=== PATIENT | female | born 1935 | race Caucasian/White ===

== ENCOUNTER 2016-11-05 03:46 | Emergency (ER) | payer MEDICARE, OTHER ==
[~2016-11-05] VITALS: Ht 167.6 cm; Wt 68.1 kg
[2016-11-05 03:50] VITALS: BP 156/90; PULSE 99; RESP 15; TEMP 97; O2SAT 95
[2016-11-05] MEDS ORDERED: LORA-373 PO (04:24)
[2016-11-05] MEDS ORDERED: CYMB60CA PO (04:24)
[2016-11-05] MEDS ORDERED: ROSU1TAB6 PO (04:24)
[2016-11-05] MEDS ORDERED: LOSA50TA PO (04:24)
[2016-11-05] MEDS ORDERED: DICY10CA12 PO (04:24)
[2016-11-05] MEDS ORDERED: TRAM50TA PO (04:24)
[2016-11-05] MEDS ORDERED: DEXI60CA2 (04:24)
[2016-11-05] MEDS ORDERED: METF1000 PO (04:24)
[2016-11-05] MEDS ORDERED: K-TA10TA PO (04:24)
[2016-11-05] MEDS ORDERED: FURO1TAB62 PO (04:24)
[2016-11-05] MEDS ORDERED: PANCREALIPASE PO (04:24)
[2016-11-05] MEDS ORDERED: MONT10TA4 PO (04:24)
[2016-11-05] MEDS ORDERED: SERO50TA PO (04:24)
--- NOTE | 2016-11-05 05:46 | PD ---
HPI Chief Complaint: Fall Time Seen by Provider: 05:34 Travel History International Travel<30 days: No Contact w/Intl Traveler<30days: No Traveled to known affect area: No History of Present Illness HPI The patient is a 81-year-old female that lost balance and fell at approximately 3 AM today. Her left occipital area hit a tile floor created a stellate laceration. There was no nausea or vomiting and no loss of consciousness. There was no syncopal spell before the fall. The patient has a frozen hip and this makes it difficult for her to walk and is the reason the family thinks she falls frequently. PFSH Past Medical History Hx Anticoagulant Therapy: No Atrial Fibrillation: No Anxiety: Yes Depression: Yes Cardiovascular Problems: Yes (CABG) High Cholesterol: Yes Congestive Heart Failure: Yes COPD: Yes Coronary Artery Disease: Yes Dementia: Yes Diabetes: Yes Patient Takes Glucophage: No Endocrine: Yes (PANCREATIC ISSUES) GERD: Yes Insomnia: Yes Musculoskeletal: Yes (CHRONIC PAIN) Respiratory: Yes (COPD, ASTHMA) Pancreatitis: Yes Tetanus Vaccination: < 5 Years Influenza Vaccination: Yes ?: Not Past Surgical History Coronary Artery Bypass Graft: Yes Endocrine Surgery: Yes (PANCREATIC STENTS) Eye Surgery: Yes (CTATRACT WITH LENS REPLACEMENT) Hysterectomy: Yes Joint Replacement: Yes (LEWFT HIP) Social History Alcohol Use: Yes Tobacco Use: Yes Substance Use: No Allergies-Medications (Allergen,Severity, Reaction): Coded Allergies: meperidine (Verified Allergy, Intermediate, Hallucinations, 11/05/16) Sulfa (Sulfonamide Antibiotics) (Verified Allergy, Mild, Nausea/Vomiting, 11/05/16) latex (Verified Allergy, Mild, Rash, 11/05/16) phenobarbital (Verified Allergy, Mild, Nausea/Vomiting, 11/05/16) Reported Meds & Prescriptions Reported Meds & Active Scripts Active Reported Tramadol (Tramadol HCl) 50 Mg Tab 100 Mg PO Q6H PRN Dexilant (Dexlansoprazole) 60 Mg Jacob.bp DAILY Lasix (Furosemide) 20 Mg Tab 20 Mg PO DAILY Montelukast (Montelukast Sodium) 10 Mg Tab 10 Mg PO HS Rosuvastatin (Rosuvastatin Calcium) 10 Mg Tab 10 Mg PO DAILY K-Tab (Potassium Chloride) 10 Meq Tab 10 Meq PO DAILY Losartan (Losartan Potassium) 50 Mg Tab 50 Mg PO DAILY [Pancrealipase] 2 Cap PO PCHS Metformin (Metformin HCl) 1,000 Mg Tab 1,000 Mg PO BIDPC With meals Dicyclomine (Dicyclomine HCl) 10 Mg Cap 10 Mg PO TID Lorazepam 0.5 Mg Tab 0.5 Mg PO Q8H PRN Cymbalta DR (Duloxetine HCl) 60 Mg Capdr 60 Mg PO DAILY Seroquel (Quetiapine Fumarate) 50 Mg Tab 50 Mg PO HS Review of Systems Except as stated in HPI: all other systems reviewed are Neg Physical Exam Narrative GENERAL: The patient is alert and oriented to situation in slight apparent distress with her scalp laceration. SKIN: Focused skin assessment warm/dry. There is a stellate laceration about 3 cm in diameter. This could not be closed with mel. HEAD: Neither raccoon eyes or urbina sign is present.. Normocephalic. EYES: Pupils equal and round and react to light briskly. No scleral icterus. No injection or drainage. ENT: No nasal bleeding or discharge. Mucous membranes pink and moist. Both tympanic membranes are poorly seen due to wax in the ear canals. NECK: Trachea midline. No JVD. CARDIOVASCULAR: Regular rate and rhythm. No murmur appreciated. RESPIRATORY: No accessory muscle use. Clear to auscultation. Breath sounds equal bilaterally. GASTROINTESTINAL: Abdomen soft, non-tender, nondistended. Hepatic and splenic margins not palpable. MUSCULOSKELETAL: No obvious deformities. No clubbing. No cyanosis. No edema. NEUROLOGICAL: Awake and alert. No obvious cranial nerve deficits. Motor grossly within normal limits. Normal speech. PSYCHIATRIC: Appropriate mood and affect; insight and judgment normal. Data Data Last Documented VS Vital Signs Date Time Temp Pulse Resp B/P (MAP) Pulse Ox O2 Delivery O2 Flow Rate FiO2 11/05/16 05:57 98.2 97 14 150/84 (106) 94 Room Air Orders Orders Ct Brain W/O Iv Contrast(Rout) (11/05/16 05:34) [facility] Medical Decision Making Medical Screen Exam Complete: Yes Emergency Medical Condition: Yes Medical Record Reviewed: Yes Interpretation(s) The CT brain shows no intracranial bleed or fracture. There are chronic changes with severe periventricular and deep white matter tracks with small vessel ischemic demyelinization. There is old left basal ganglia lacunar infarct and possible punctate pontine lacunar infarcts. There is a small cephalohematoma in the left posterior. Sohan takes region which is not associated with an acute fracture or hemorrhage. Differential Diagnosis Scalp laceration, skull fracture, intracranial bleed Narrative Course The patient has a scalp laceration. There is no evidence of any skull fracture or intracranial bleed. Procedures Procedure Narrative The scalp was copiously irrigated with saline. Under sterile technique, I infiltrated the wound edges with lidocaine with epinephrine. Under sterile technique I sutured the wound edges of the stellate laceration together. It was obvious that clots will form beneath this scalp and I left some areas for the scalp to drain through the laceration. The patient tolerated procedure well. 5 stitches of 4-0 nylon were used. Total laceration length on the stellate laceration was 7 cm. Diagnosis Primary Impression: Occipital scalp laceration Additional Instructions: Return for suture removal in 14 days. Try to keep the scalp is clean and dry as possible. If there are any problems, please return to the emergency department. Med/Other Pt SpecificInfo: No Change to Meds Disposition: 01 DISCHARGE HOME Condition: Stable Brad To MD Nov 05, 2016 05:46
[2016-11-05 05:57] VITALS: BP 150/84; PULSE 97; RESP 14; TEMP 98.2; O2SAT 94
--- NOTE | 2016-11-05 06:34 | RADRPT ---
EXAM DATE/TIME: 11/05/2016 05:52 [facility] COMPARISON: No previous studies available for comparison. INDICATIONS : Status post fall at home. Laceration to scalp RADIATION DOSE: 65.66 CTDIvol (mGy) MEDICAL HISTORY : Dementia. Chronic obstructive pulmonary disease. Congestive heart failure. SURGICAL HISTORY : Cataract ENCOUNTER: Initial ACUITY: 1 day PAIN SCALE: 0/10 LOCATION: cranial TECHNIQUE: Multiple contiguous axial images were obtained of the head. Using automated exposure control and adj ustment of the mA and/or kV according to patient size, radiation dose was kept as low as reasonably a chievable to obtain optimal diagnostic quality images. DICOM format image data is available electro nically for review and comparison. FINDINGS: CEREBRUM: The ventricles are normal for age. Chronic changes and severe periventricular and deep white matter tracts small vessel ischemic demyelination. Old lacunar type infarct in the left basal ganglia. No ev idence of midline shift, mass lesion, hemorrhage or acute infarction. No extra-axial fluid collectio ns are seen. POSTERIOR FOSSA: The cerebellum and brainstem are intact. Possible old lacunar type infarction the chris. The 4th vent ricle is midline. The cerebellopontine angle is unremarkable. EXTRACRANIAL: The visualized portion of the orbits is intact. SKULL: The calvaria is intact. No evidence of skull fracture. Small soft hematoma in the left posterior per ivertex region. CONCLUSION: 1. Chronic changes with severe periventricular and deep white matter tracks no vessel ischemic demyel ination, old left basal ganglia lacunar infarct and possible punctate pontine lacunar infarcts. 2. Small cephalhematoma in the left posterior perivertex region. No acute fracture or intracranial he morrhage. Harjinder Leggett MD on November 05, 2016 at 6:30 Board Certified Radiologist. This report was verified electronically.
[2016-11-05 06:50] VITALS: BP 150/84; TEMP 98.2
== END 2016-11-05 06:53 | disposition home or self-care (01) ==
LOC: PHED 03:46
DX: S01.01XA Laceration without foreign body of scalp, initial encounter (principal); W01.0XXA Fall on same level from slipping, tripping and stumbling without subsequent striking against object, initial encounter; E11.9 Type 2 diabetes mellitus without complications; E78.00 Pure hypercholesterolemia, unspecified; I25.10 Atherosclerotic heart disease of native coronary artery without angina pectoris; I50.9 Heart failure, unspecified; J44.9 Chronic obstructive pulmonary disease, unspecified; Z95.1 Presence of aortocoronary bypass graft; Z86.73 Personal history of transient ischemic attack (TIA), and cerebral infarction without residual deficits; K85.90 Acute pancreatitis without necrosis or infection, unspecified
CPT/HCPCS: 12002; 70450